=== PATIENT | female | born 1980 | race Caucasian/White ===

== ENCOUNTER 2017-10-17 05:01 | Inpatient (IN) | payer BC ==
[2017-10-17] MEDS ORDERED: Sodium Chloride 0.9% 2.5 ML Syringe FLUSH PRN (05:25)
[2017-10-17] MEDS ORDERED: Sodium Chloride 0.9% 10 ML Syringe FLUSH PRN (05:25)
[2017-10-17] MEDS ORDERED: ceFAZolin 2 GM in Premix Bag 1 BAG IV ONE (05:25)
[2017-10-17] MEDS ORDERED: Lactated Ringers 1,000 ML IV SCH ×2 (05:30→10:15)
[2017-10-17] MEDS ORDERED: Oxytocin/0.9 % Sodium Chloride 30 UNIT/500 ML BAG IV SCH (05:30)
[2017-10-17] MEDS ORDERED: Citric Acid/Sodium Citrate Solution 30 ML Cup PO SCH (05:30)
--- NOTE | 2017-10-17 07:25 | PCM.PREANE ---
Preanesthetic Assessment - Anesthesia/Transfusion/Family Hx Anesthesia History: Prior Anesthesia Without Reaction Family History of Anesthesia Reaction: No Transfusion History: No Prior Transfusion(s) - Review of Systems General: No Symptoms Pulmonary: No Symptoms Cardiovascular: No Symptoms Gastrointestinal: No Symptoms Neurological: No Symptoms Other: Reports: Diabetes (gest DM, ) - Physical Assessment NPO Status Date: 10/16/17 Height: 1.65 m Weight: 106.141 kg ASA Class: 2 Mental Status: Alert & Oriented x3 Airway Class: Mallampati = 1 Dentition: Reports: Normal Dentition ROM/Head Extension: Full Lungs: Clear to Auscultation, Normal Respiratory Effort Cardiovascular: Regular Rate, Regular Rhythm - Lab Values: Laboratory Last Values WBC 11.42 K/uL (4.0-11.0) H 10/17/17 05:45 RBC 4.07 M/uL (4.30-5.90) L 10/17/17 05:45 Hgb 11.8 g/dL (12.0-16.0) L 10/17/17 05:45 Hct 35.2 % (36.0-46.0) L 10/17/17 05:45 MCV 86.5 fL (80.0-98.0) 10/17/17 05:45 MCH 29.0 pg (27.0-32.0) 10/17/17 05:45 MCHC 33.5 g/dL (31.0-37.0) 10/17/17 05:45 RDW Std Deviation 45.9 fl (28.0-62.0) 10/17/17 05:45 RDW Coeff of Francisco 15 % (11.0-15.0) 10/17/17 05:45 Plt Count 268 K/uL (150-400) 10/17/17 05:45 MPV 10.70 fL (7.40-12.00) 10/17/17 05:45 Nucleated RBC % 0.0 /100WBC 10/17/17 05:45 Nucleated RBCs # 0 K/uL 10/17/17 05:45 POC Glucose 76 mg/dL (60-110) 10/17/17 05:37 Blood Type A POSITIVE 10/17/17 05:45 Antibody Screen NEGATIVE 10/17/17 05:45 - Allergies Allergies/Adverse Reactions: Allergies Allergy/AdvReac Type Severity Reaction Status Date / Time No Known Allergies Allergy Verified 10/15/17 08:12 - Anesthesia Plan Pre-Op Medication Ordered: Antacids (chart reviewed. pt interviewed and examined , consents obtained for spinal with intrathecal morphine) - Acknowledgements Anesthesia Type Planned: Spinal Pt an Appropriate Candidate for the Planned Anesthesia: Yes Alternatives and Risks of Anesthesia Discussed w Pt/Guardian: Yes Pt/Guardian Understands and Agrees with Anesthesia Plan: Yes PreAnesthesia Questionnaire HEENT History: Reports: Other (See Below) Other HEENT History: hx fx nose, wears glasses, has dental implant Cardiovascular History: Reports: Other (See Below) Other Cardiovascular History: elevated BP with previous Genitourinary History: Reports: Renal Calculus OUTSOLE CEMENT[employer] MACHINE History: Reports: Musculoskeletal History: Reports: None Endocrine/Metabolic History: Reports: Diabetes, Gestational, Obesity/BMI 30+ - Infectious Disease History Infectious Disease History: Reports: Chicken Pox - Past Surgical History Head Surgeries/Procedures: Reports: None Female Surgical History: Reports: Section - SUBSTANCE USE Smoking Status *Q: Never Smoker Tobacco Use Within Last Twelve Months: No Second Hand Smoke Exposure: No Recreational Drug Use History: No - HOME MEDS Home Medications: Home Meds PNV95/Ferrous Fumarate/FA [ Vitamin Tablet] 1 tab PO DAILY 10/15/17 [ History] glyBURIDE [Glyburide] 3.75 mg PO DAILY 10/15/17 [History] - CURRENT (IN HOUSE) MEDS Current Meds: Current Medications Citric Acid/Sodium Citrate (Bicitra Solution) 30 ml PO .ONCE YO Lactated Ringer's (Ringers, Lactated) 1,000 mls @ 500 mls/hr IV .BOLUS YO Oxytocin/Sodium Chloride (Oxytocin 30 Unit/500 Ml-Ns) 30 unit in 500 mls @ 250 mls/hr IV TITRATE YO Sodium Chloride (Saline Flush) 10 ml FLUSH ASDIRECTED PRN PRN Reason: Keep Vein Open Sodium Chloride (Saline Flush) 2.5 ml FLUSH ASDIRECTED PRN PRN Reason: Keep Vein Open Discontinued Medications Cefazolin Sodium/Dextrose 2 gm (/ Premix) 50 mls @ 100 mls/hr IV ONETIME ONE Stop: 10/17/17 05:54
[2017-10-17] MEDS ORDERED: Morphine PF 1 MG/ML Amp ONE (07:30)
[2017-10-17] MEDS ORDERED: ceFAZolin/Dextrose,Iso-Osmotic 2 GM/50 ML Duplex Bag IV ONE (08:13)
[2017-10-17] MEDS ORDERED: Acetaminophen/oxyCODONE 325-5 MG Tab PO PRN ×2 (08:50→10:04)
[2017-10-17] MEDS ORDERED: Nalbuphine 10 MG/ML 10 ML MDV IVPUSH PRN (08:50)
[2017-10-17] MEDS ORDERED: fentaNYL 100 MCG/2 ML SDV IVPUSH PRN (08:50)
[2017-10-17] MEDS ORDERED: Phenylephrine/Normal Saline 100 MCG/ML 10 ML Syringe ONE (08:53)
[2017-10-17] MEDS ORDERED: Oxytocin 10 Units/1 ML SDV ONE (08:53)
[2017-10-17] MEDS ORDERED: Methylergonovine 0.2 MG/1 ML Amp ONE (09:06)
[2017-10-17] MEDS ORDERED: fentaNYL 100 MCG/2 ML SDV ONE (09:10)
[2017-10-17] MEDS ORDERED: Lanolin 100% Cream 7 GM Tube TOP PRN (10:04)
[2017-10-17] MEDS ORDERED: Ondansetron 4 MG/2 ML SDV IV PRN (10:04)
[2017-10-17] MEDS ORDERED: Bisacodyl 10 MG Supp RECTAL PRN (10:04)
[2017-10-17] MEDS ORDERED: diphenhydrAMINE 50 MG/ML SDV IVPUSH PRN (10:04)
--- NOTE | 2017-10-17 10:14 | PCM.OPNOTE ---
- General Post-Op/Procedure Note Date of Surgery/Procedure: 10/17/17 Operative Procedure(s): Repeat section. Lysis of adhesions. Excision of left paratubal cyst Findings: Male , wt 3420 grams, Apgars 8 and 9. Dense anterior wall adhesions with omentum. Ledt paratubal cyst. Grossly normal uterus, tubes and ovaries. Grossly normal placenta with 3 vessel cord. Pre Op Diagnosis: IUP 39.3 weeks, Previous c- section x 2, GDMA 2( glyburide), polyhydramnios Post-Op Diagnosis: Same Anesthesia Technique: Spinal Primary Surgeon: Lucy Garcia Anesthesia Provider: Tino Randhawa Pathology: Placenta. Left pare tubal cyst Fluid Replacement, Intraop: 1,500 Output, Urine Amount: 100 EBL in mLs: 800 Complications: None Condition: Good Free Text/Narrative:: Intake & Output 10/16/17 10/17/17 10/17/17 22:59 06:59 14:59 Output Total 100 Balance -100
[2017-10-17] MEDS: Ketorolac 30 MG/ML SDV IVPUSH SCH ×3 (10:22→22:36)
--- NOTE | 2017-10-17 10:28 | PCM.POSTAN ---
POST ANESTHESIA ASSESSMENT - MENTAL STATUS Mental Status: Alert, Oriented - RESPIRATORY Respiratory Status: Respiratory Rate WNL, Airway Patent, O2 Saturation Stable - CARDIOVASCULAR CV Status: Pulse Rate WNL - GASTROINTESTINAL GI Status: No Symptoms - PAIN Pain Score: 0 - POST OP HYDRATION Hydration Status: Adequate & Stable - OBSERVATIONS Free Text/Narrative:: no anesthesia problems
--- NOTE | 2017-10-17 12:52 | OR ---
SURGEON: Lucy Garcia MD DATE OF PROCEDURE: 10/17/2017 PREOPERATIVE DIAGNOSES: 1. Term at 39 weeks and 3 days gestation. 2. Repeat elective section. 3. History of two prior sections. 4. Gestational diabetes, controlled on oral hypoglycemic agents. 5. Polyhydramnios. 6. Advanced maternal age. POSTOPERATIVE DIAGNOSES: 1. Term at 39 weeks and 3 days gestation. 2. Repeat elective section. 3. History of two prior sections. 4. Gestational diabetes, controlled on oral hypoglycemic agents. 5. Polyhydramnios. 6. Advanced maternal age. 7. Delivered. ANESTHESIA: Spinal. ESTIMATED BLOOD LOSS: 800 mL. IV FLUIDS: 1500 mL of crystalloid. URINE OUTPUT: 100 mL, clear at the end of the procedure. COMPLICATIONS: None. CONDITION: Stable to recovery room. INDICATION: The patient is a 37-year-old G3, P2, at 39 weeks and 3 days gestation, elective repeat section due to history of two prior section. was complicated by gestational diabetes, controlled on glyburide, and the patient also had mild polyhydramnios, serial surveillance were reassuring. PROCEDURES: 1. Repeat low-transverse section via Pfannenstiel. 2. Lysis of adhesion. 3. Excision of left paratubal cyst. FINDINGS: Male infant in cephalic presentation, clear amniotic fluid, no nuchal cord, weight 3420 g, scores 8 and 9 at 1 and 5 minutes respectively. Dense anterior wall adhesions with underlying omentum adherent to it to the parietal peritoneum. Grossly looking uterus and tubes. Small left paratubal cyst. Grossly normal placenta with 3-vessel cord. DESCRIPTION OF PROCEDURE: The patient was taken to the operating room where spinal anesthesia was performed and found to be adequate. She was then prepped and draped in the usual sterile fashion in the dorsal supine position with a leftward tilt. SCDs were in place. 2 g of Ancef was given. Appropriate time-out was held. A Pfannenstiel skin incision was made with a scalpel through her old incision and then carried through to the underlying layer of fascia with the Bovie. The fascia was incised in the midline and incision was extended laterally with the Avelar scissors. The superior aspect of the fascial incision was grasped with Veronica clamps, elevated, and underlying rectus muscle was dissected off sharply with the scalpel. Attention was then turned to the inferior aspect of this incision, which in a similar fashion was grasped, tented up with Veronica clamps, and the underlying rectus muscle was dissected off sharply with the scalpel. The rectus muscle was then grasped in the midline with two Allis clamps and elevated, and then was until the parietal peritoneum was reached and a window was created. Digital sweep of the abdomen was performed and was noted to have dense omental adhesions to the parietal peritoneum on the patient's right side. This was then traced and the omental adhesions were taken down by both sharp and blunt dissection. The thick band of omentum that was adherent to the parietal peritoneum was then double clamped with Courtney, , and then ligated with a free tie of 2-0 Vicryl. The edges were hemostatic. Once this was performed, the peritoneal defect was then extended upwards and downwards with good visualization of the internal organs and the bladder, and it was also further extended laterally by stretching. A self-retaining Tong O retractor was then placed into the abdominal cavity. The vesicouterine peritoneum was identified, grasped with pickups, and entered sharply with the Metzenbaum scissors and this incision was then extended laterally and a bladder flap was created digitally. The lower uterine segment was then incised in a transverse fashion, was extended upwards and downwards bluntly. The 's head was lifted out of the pelvis and delivered atraumatically followed by the shoulders and the body. The baby was vigorous and cried spontaneously at . The cord was double clamped and cut, and the infant was handed over to the awaiting nursery team. Cord blood and gas samples were obtained. The placenta was delivered spontaneously by massage. The uterus was cleaned of all clots and debris. The hysterotomy site was repaired in 2 layers using 0 Vicryl. The first layer was repaired in a running locked fashion and a second imbricating layer was performed to obtain excellent hemostasis. The uterus was noted to be boggy. Bimanual massage was performed, the uterus firmed up, but it was noted to become bulky in between massage, so in addition, Methergine 0.25 mg was given IM. After this, the uterus firmed up quite well. The bladder flap was then reapproximated with 3-0 Polysorb suture. The hysterotomy site was reexamined and found to have excellent hemostasis. The pericolic gutters were cleaned of all clots and debris. The Tong O retractor was removed. The edges of the peritoneum were identified and this layer was closed with 2-0 Vicryl. The muscular layer was then reapproximated with the same suture. The subfascial tissues were examined and found to have excellent hemostasis. The fascia was then approximated with 0 Vicryl in a running fashion. The subcuticular tissues were irrigated and made hemostatic with electrocautery. The subcutaneous layer was reapproximated with 3-0 plain suture in a running fashion. The skin was closed with 4-0 Monocryl using subcuticular stitches. The patient tolerated the procedure well. All sponge, needle, and instrument counts were correct at the end of the procedure. The patient was taken to the recovery room in stable condition, and the baby to the nursery. AKIKO / BELKIS /[id number]
[2017-10-17] MEDS: Docusate Sodium 100 MG Cap PO SCH (20:40)
[2017-10-18] MEDS: Ketorolac 30 MG/ML SDV IVPUSH SCH ×2 (04:19→10:50)
--- NOTE | 2017-10-18 08:12 | PCM.PNPP ---
<Dinora Miller - Last Filed: 10/18/17 08:10> - General Info Date of Service: 10/18/17 Functional Status: Reports: Pain Controlled, Tolerating Diet, Ambulating, Urinating - Review of Systems General: Denies: Fever, Weakness Pulmonary: Denies: Shortness of Breath, Pleuritic Chest Pain, Cough Cardiovascular: Denies: Chest Pain, Palpitations, Dyspnea on Exertion Gastrointestinal: Denies: Abdominal Pain Genitourinary: Denies: Dysuria - General Info Date of Service: 10/18/17 - Patient Data Vital Signs - Most Recent: Last Vital Signs Temp 36.3 C 10/18/17 04:56 Pulse 90 10/18/17 04:56 Resp 18 10/18/17 06:06 BP 130/76 10/18/17 04:56 Pulse Ox 94 L 10/18/17 06:06 Weight - Most Recent: 234 lb I&O - Last 24 Hours: Intake & Output 10/17/17 10/18/17 10/18/17 22:59 06:59 14:59 Intake Total 3900 Output Total 3100 1400 Balance 800 -1400 Lab Results - Last 24 Hours: Laboratory Results - last 24 hr 10/17/17 10/18/17 Range/Units 08:45 04:35 Hgb 10.0 L (12.0-16.0) g/dL Hct 29.9 L (36.0-46.0) % Cord ABG pH 7.394 H (7.18-7.38) Cord ABG Base Excess -3 (-10--2) Cord VBG pH 7.351 (7.25-7.45) Cord VBG Base Excess -2 (-10--2) Med Orders - Current: Current Medications Bisacodyl (Dulcolax) 10 mg RECTAL .ONCE PRN PRN Reason: Constipation Diphenhydramine HCl (Benadryl) 25 mg IVPUSH Q6H PRN PRN Reason: Itching or Nausea Docusate Sodium (Colace) 100 mg PO BID YO Last Admin: 10/17/17 20:40 Dose: 100 mg Emollient Ointment (Lansinoh Hpa) 0 gm TOP ASDIRECTED PRN PRN Reason: Sore Nipples Fentanyl (Sublimaze) 50 mcg IVPUSH Q5M PRN PRN Reason: Pain (severe 7-10) Stop: 10/18/17 08:50 Lactated Ringer's (Ringers, Lactated) 1,000 mls @ 125 mls/hr IV ASDIRECTED [facility] Last Admin: 10/17/17 10:57 Dose: 125 mls/hr Ibuprofen (Motrin) 800 mg PO Q8H PRN PRN Reason: mild pain or fever Ketorolac Tromethamine (Toradol) 30 mg IVPUSH Q6H [facility] Stop: 10/18/17 10:16 Last Admin: 10/18/17 04:19 Dose: 30 mg Nalbuphine HCl (Nubain) 2.5 mg IVPUSH Q3H PRN PRN Reason: Pruritis Stop: 10/18/17 08:51 Ondansetron HCl (Zofran) 4 mg IV Q4H PRN PRN Reason: Nausea/Vomiting Oxycodone/Acetaminophen (Percocet 325-5 Mg) 1 tab PO ONETIME PRN PRN Reason: Pain (moderate 4-6) Oxycodone/Acetaminophen (Percocet 325-5 Mg) 1 tab PO Q4H PRN PRN Reason: Pain (moderate 4-6) Oxycodone/Acetaminophen (Percocet 325-5 Mg) 2 tab PO Q4H PRN PRN Reason: Pain (moderate 4-6) Discontinued Medications Cefazolin Sodium/Dextrose (Ancef) Confirm Administered Dose 2 gm IV .STK-MED ONE Stop: 10/17/17 08:14 Citric Acid/Sodium Citrate (Bicitra Solution) 30 ml PO .ONCE [facility] Last Admin: 10/17/17 07:55 Dose: 30 ml Fentanyl (Sublimaze) Confirm Administered Dose 100 mcg .ROUTE .STK-MED ONE Stop: 10/17/17 09:11 Cefazolin Sodium/Dextrose 2 gm (/ Premix) 50 mls @ 100 mls/hr IV ONETIME ONE Stop: 10/17/17 05:54 Lactated Ringer's (Ringers, Lactated) 1,000 mls @ 500 mls/hr IV .BOLUS [facility] Oxytocin/Sodium Chloride (Oxytocin 30 Unit/500 Ml-Ns) 30 unit in 500 mls @ 250 mls/hr IV TITRATE [facility] Methylergonovine Maleate (Methergine) Confirm Administered Dose 0.2 mg .ROUTE .STK-MED ONE Stop: 10/17/17 09:07 Morphine Sulfate (Duramorph Pf) Confirm Administered Dose 1 mg .ROUTE .STK-MED ONE Stop: 10/17/17 07:31 Oxytocin (Pitocin) Confirm Administered Dose 20 unit .ROUTE .STK-MED ONE Stop: 10/17/17 08:54 Phenylephrine HCl (Phenylephrine In Ns 100 Mcg/Ml) Confirm Administered Dose 1 mg .ROUTE .STK-MED ONE Stop: 10/17/17 08:54 Sodium Chloride (Saline Flush) 10 ml FLUSH ASDIRECTED PRN PRN Reason: Keep Vein Open Sodium Chloride (Saline Flush) 2.5 ml FLUSH ASDIRECTED PRN PRN Reason: Keep Vein Open - Infant Interaction Infant Disposition, : in Room with Family Infant Interaction: Holding Infant Feeding: Attempted ; Nursed Fair/Poor Support Person: - Recovery Exam Fundal Tone: Firm Fundal Level: At Umbilicus Fundal Placement: Midline Lochia Amount: Scant Lochia Color: Rubra/Red Perineum Description: Intact, Minimal Bruising/Swelling Bladder Status: Indwelling Catheter in Place Urinary Elimination: Indwelling Catheter - Exam General: Alert, Oriented Neck: Supple Lungs: Clear to Auscultation, Normal Respiratory Effort Cardiovascular: Regular Rate, Regular Rhythm GI/Abdominal Exam: Normal Bowel Sounds, Non-Tender, No Distention Extremities: Normal Inspection, Normal Capillary Refill, Pedal Edema (trace) - Problem List & Annotations (1) delivery delivered SNOMED Code(s): 481113916 Code(s): O82 - ENCOUNTER FOR DELIVERY WITHOUT INDICATION Status: Acute Current Visit: Yes - Problem List Review Problem List Initiated/Reviewed/Updated: Yes - Assessment Assessment:: POD#1 s/p RLTCS. Minimal pain and lochia. Work on breast feeding today. Encouraged to shower and ambulate halls. - Plan Plan:: Continue routine post-op cares. Anticipate discharge home tomorrow. <Lucy Garcia - Last Filed: 10/18/17 18:28> - Patient Data Vital Signs - Most Recent: Last Vital Signs Temp 37.1 C 10/18/17 17:00 Pulse 96 10/18/17 17:00 Resp 15 10/18/17 17:00 BP 131/91 H 10/18/17 17:00 Pulse Ox 97 10/18/17 17:00 I&O - Last 24 Hours: Intake & Output 10/18/17 10/18/17 10/18/17 06:59 14:59 22:59 Output Total 1400 Balance -1400 Lab Results - Last 24 Hours: Laboratory Results - last 24 hr 10/18/17 Range/Units 04:35 Hgb 10.0 L (12.0-16.0) g/dL Hct 29.9 L (36.0-46.0) % Med Orders - Current: Current Medications Bisacodyl (Dulcolax) 10 mg RECTAL .ONCE PRN PRN Reason: Constipation Diphenhydramine HCl (Benadryl) 25 mg IVPUSH Q6H PRN PRN Reason: Itching or Nausea Docusate Sodium (Colace) 100 mg PO BID [facility] Last Admin: 10/18/17 10:50 Dose: 100 mg Emollient Ointment (Lansinoh Hpa) 0 gm TOP ASDIRECTED PRN PRN Reason: Sore Nipples Lactated Ringer's (Ringers, Lactated) 1,000 mls @ 125 mls/hr IV ASDIRECTED [facility] Last Admin: 10/17/17 10:57 Dose: 125 mls/hr Ibuprofen (Motrin) 800 mg PO Q8H PRN PRN Reason: mild pain or fever Last Admin: 10/18/17 16:55 Dose: 800 mg Ondansetron HCl (Zofran) 4 mg IV Q4H PRN PRN Reason: Nausea/Vomiting Oxycodone/Acetaminophen (Percocet 325-5 Mg) 1 tab PO ONETIME PRN PRN Reason: Pain (moderate 4-6) Oxycodone/Acetaminophen (Percocet 325-5 Mg) 1 tab PO Q4H PRN PRN Reason: Pain (moderate 4-6) Last Admin: 10/18/17 16:56 Dose: 1 tab Oxycodone/Acetaminophen (Percocet 325-5 Mg) 2 tab PO Q4H PRN PRN Reason: Pain (moderate 4-6) Discontinued Medications Cefazolin Sodium/Dextrose (Ancef) Confirm Administered Dose 2 gm IV .STK-MED ONE Stop: 10/17/17 08:14 Citric Acid/Sodium Citrate (Bicitra Solution) 30 ml PO .ONCE YO Last Admin: 10/17/17 07:55 Dose: 30 ml Fentanyl (Sublimaze) 50 mcg IVPUSH Q5M PRN PRN Reason: Pain (severe 7-10) Stop: 10/18/17 08:50 Fentanyl (Sublimaze) Confirm Administered Dose 100 mcg .ROUTE .STK-MED ONE Stop: 10/17/17 09:11 Cefazolin Sodium/Dextrose 2 gm (/ Premix) 50 mls @ 100 mls/hr IV ONETIME ONE Stop: 10/17/17 05:54 Lactated Ringer's (Ringers, Lactated) 1,000 mls @ 500 mls/hr IV .BOLUS YO Oxytocin/Sodium Chloride (Oxytocin 30 Unit/500 Ml-Ns) 30 unit in 500 mls @ 250 mls/hr IV TITRATE YO Ketorolac Tromethamine (Toradol) 30 mg IVPUSH Q6H YO Stop: 10/18/17 10:16 Last Admin: 10/18/17 10:50 Dose: 30 mg Methylergonovine Maleate (Methergine) Confirm Administered Dose 0.2 mg .ROUTE .STK-MED ONE Stop: 10/17/17 09:07 Morphine Sulfate (Duramorph Pf) Confirm Administered Dose 1 mg .ROUTE .STK-MED ONE Stop: 10/17/17 07:31 Nalbuphine HCl (Nubain) 2.5 mg IVPUSH Q3H PRN PRN Reason: Pruritis Stop: 10/18/17 08:51 Oxytocin (Pitocin) Confirm Administered Dose 20 unit .ROUTE .STK-MED ONE Stop: 10/17/17 08:54 Phenylephrine HCl (Phenylephrine In Ns 100 Mcg/Ml) Confirm Administered Dose 1 mg .ROUTE .STK-MED ONE Stop: 10/17/17 08:54 Sodium Chloride (Saline Flush) 10 ml FLUSH ASDIRECTED PRN PRN Reason: Keep Vein Open Sodium Chloride (Saline Flush) 2.5 ml FLUSH ASDIRECTED PRN PRN Reason: Keep Vein Open - My Orders Last 24 Hours: My Active Orders 10/17/17 21:00 Docusate Sodium [Colace] 100 mg PO BID - Assessment Assessment:: Evaluated independently and agreed with the above. Still struggling with breast feeding - Plan Plan:: Continue with current care. Encouraged expressing breast milk with regular feeding and continue with supplementation. Anticipate discharge tomorrow or next.
[2017-10-18] MEDS: Docusate Sodium 100 MG Cap PO SCH ×2 (10:50→20:17)
[2017-10-18] MEDS: Ibuprofen 800 MG Tab PO PRN (16:55)
[2017-10-18] MEDS: Acetaminophen/oxyCODONE 325-5 MG Tab PO PRN ×2 (16:56→22:03)
[2017-10-19] MEDS: Acetaminophen/oxyCODONE 325-5 MG Tab PO PRN (05:05)
[2017-10-19] MEDS: Ibuprofen 800 MG Tab PO PRN (05:25)
--- NOTE | 2017-10-19 09:19 | PCM.PNPP ---
- General Info Date of Service: 10/19/17 Admission Dx/Problem (Free Text): 37 yo P3 s/p tertiary Subjective Update: Patient denies any complains today Functional Status: Reports: Pain Controlled, Tolerating Diet, Ambulating, Urinating - Review of Systems General: Reports: No Symptoms HEENT: Reports: No Symptoms Pulmonary: Reports: No Symptoms Cardiovascular: Reports: No Symptoms Gastrointestinal: Reports: No Symptoms Genitourinary: Reports: No Symptoms Musculoskeletal: Reports: No Symptoms Skin: Reports: No Symptoms Neurological: Reports: No Symptoms Psychiatric: Reports: No Symptoms - General Info Date of Service: 10/19/17 - Patient Data Vital Signs - Most Recent: Last Vital Signs Temp 36.4 C 10/19/17 04:00 Pulse 92 10/19/17 04:00 Resp 15 10/19/17 04:00 BP 127/86 10/19/17 04:00 Pulse Ox 95 10/19/17 04:00 Weight - Most Recent: 106.141 kg Med Orders - Current: Current Medications Bisacodyl (Dulcolax) 10 mg RECTAL .ONCE PRN PRN Reason: Constipation Diphenhydramine HCl (Benadryl) 25 mg IVPUSH Q6H PRN PRN Reason: Itching or Nausea Docusate Sodium (Colace) 100 mg PO BID [facility] Last Admin: 10/18/17 20:17 Dose: 100 mg Emollient Ointment (Lansinoh Hpa) 0 gm TOP ASDIRECTED PRN PRN Reason: Sore Nipples Lactated Ringer's (Ringers, Lactated) 1,000 mls @ 125 mls/hr IV ASDIRECTED [facility] Last Admin: 10/17/17 10:57 Dose: 125 mls/hr Ibuprofen (Motrin) 800 mg PO Q8H PRN PRN Reason: mild pain or fever Last Admin: 10/19/17 05:25 Dose: 800 mg Ondansetron HCl (Zofran) 4 mg IV Q4H PRN PRN Reason: Nausea/Vomiting Oxycodone/Acetaminophen (Percocet 325-5 Mg) 1 tab PO ONETIME PRN PRN Reason: Pain (moderate 4-6) Oxycodone/Acetaminophen (Percocet 325-5 Mg) 1 tab PO Q4H PRN PRN Reason: Pain (moderate 4-6) Last Admin: 10/19/17 05:05 Dose: 1 tab Oxycodone/Acetaminophen (Percocet 325-5 Mg) 2 tab PO Q4H PRN PRN Reason: Pain (moderate 4-6) Discontinued Medications Cefazolin Sodium/Dextrose (Ancef) Confirm Administered Dose 2 gm IV .STK-MED ONE Stop: 10/17/17 08:14 Citric Acid/Sodium Citrate (Bicitra Solution) 30 ml PO .ONCE YO Last Admin: 10/17/17 07:55 Dose: 30 ml Fentanyl (Sublimaze) 50 mcg IVPUSH Q5M PRN PRN Reason: Pain (severe 7-10) Stop: 10/18/17 08:50 Fentanyl (Sublimaze) Confirm Administered Dose 100 mcg .ROUTE .STK-MED ONE Stop: 10/17/17 09:11 Cefazolin Sodium/Dextrose 2 gm (/ Premix) 50 mls @ 100 mls/hr IV ONETIME ONE Stop: 10/17/17 05:54 Lactated Ringer's (Ringers, Lactated) 1,000 mls @ 500 mls/hr IV .BOLUS YO Oxytocin/Sodium Chloride (Oxytocin 30 Unit/500 Ml-Ns) 30 unit in 500 mls @ 250 mls/hr IV TITRATE YO Ketorolac Tromethamine (Toradol) 30 mg IVPUSH Q6H YO Stop: 10/18/17 10:16 Last Admin: 10/18/17 10:50 Dose: 30 mg Methylergonovine Maleate (Methergine) Confirm Administered Dose 0.2 mg .ROUTE .STK-MED ONE Stop: 10/17/17 09:07 Morphine Sulfate (Duramorph Pf) Confirm Administered Dose 1 mg .ROUTE .STK-MED ONE Stop: 10/17/17 07:31 Nalbuphine HCl (Nubain) 2.5 mg IVPUSH Q3H PRN PRN Reason: Pruritis Stop: 10/18/17 08:51 Oxytocin (Pitocin) Confirm Administered Dose 20 unit .ROUTE .STK-MED ONE Stop: 10/17/17 08:54 Phenylephrine HCl (Phenylephrine In Ns 100 Mcg/Ml) Confirm Administered Dose 1 mg .ROUTE .STK-MED ONE Stop: 10/17/17 08:54 Sodium Chloride (Saline Flush) 10 ml FLUSH ASDIRECTED PRN PRN Reason: Keep Vein Open Sodium Chloride (Saline Flush) 2.5 ml FLUSH ASDIRECTED PRN PRN Reason: Keep Vein Open - Interaction Infant Disposition, : [place] in Room with Family Interaction: Holding Infant Infant Feeding: Attempted ; Nursed Fair/Poor Support Person: - Recovery Exam Fundal Tone: Firm Fundal Level: 1 Fingerbreadths Below Umbilicus Fundal Placement: Midline Lochia Amount: Scant Lochia Color: Rubra/Red Perineum Description: Intact, Minimal Bruising/Swelling Episiotomy/Laceration: None Bladder Status: Voiding Urinary Elimination: Voided - Exam General: Alert HEENT: Pupils Equal Neck: Supple Lungs: Clear to Auscultation, Normal Respiratory Effort Cardiovascular: Regular Rate, Regular Rhythm GI/Abdominal Exam: Normal Bowel Sounds Extremities: Normal Inspection Skin: Warm Wound/Incisions: Other (Pfannestiel skin incision c/d/i ) Neurological: No New Focal Deficit Psy/Mental Status: Alert - Problem List & Annotations (1) delivery delivered SNOMED Code(s): 845164282 Code(s): O82 - ENCOUNTER FOR DELIVERY WITHOUT INDICATION Status: Acute Current Visit: Yes - Problem List Review Problem List Initiated/Reviewed/Updated: Yes - Assessment Assessment:: 37 yo P3 s/p tertiary LTCS stable , POD2 - Plan Plan:: Discharge home .
--- NOTE | 2017-10-19 10:21 | PCM48HPAN ---
Post Anesthesia Note - EVALUATION WITHIN 48HRS OF ANESTHETIC Vital Signs in Normal Range: Yes Patient Participated in Evaluation: Yes Respiratory Function Stable: Yes Airway Patent: Yes Cardiovascular Function Stable: Yes Hydration Status Stable: Yes Pain Control Satisfactory: Yes Nausea and Vomiting Control Satisfactory: Yes Mental Status Recovered: Yes Resp Rate: 15
== END 2017-10-19 12:30 | disposition home or self-care (01) | DRG 540 ==
LOC: MW.OB 05:01
PROVIDERS: ADMIT Obstetrics & Gynecology; ATTEND Obstetrics & Gynecology
PROC: 10D00Z1 Extraction of Products of Conception, Low, Open Approach (ICD-10-PCS; principal; 2017-10-17)
PROC: 0UB60ZZ Excision of Left Fallopian Tube, Open Approach (ICD-10-PCS; 2017-10-17)
PROC: 0DNU0ZZ Release Omentum, Open Approach (ICD-10-PCS; 2017-10-17)
DX: O24.425 Gestational diabetes mellitus in childbirth, controlled by oral hypoglycemic drugs (principal); O09.523 Supervision of elderly multigravida, third trimester; O40.3XX0 Polyhydramnios, third trimester, not applicable or unspecified; Z3A.39 39 weeks gestation of pregnancy; Z37.0 Single live birth
CPT/HCPCS: 36415; 59025; 82803; 82962; 85014; 85018; 85027; 86850; 86900; 86901; 88307; A9270-GY; J0690; J1885; J2274; J2590; J3010; J7120